=== PATIENT | female | born 1985 | race Caucasian/White ===

== ENCOUNTER 2022-07-26 19:28 | Emergency (ER) | payer BC ==
[2022-07-26] MEDS ORDERED: Acetaminophen/HYDROcodone 325-5 MG Tab PO ONE (21:07)
== END 2022-07-26 21:18 | disposition home or self-care (01) ==
LOC: MW.ED 19:28
DX: S09.90XA Unspecified injury of head, initial encounter (principal); S09.92XA Unspecified injury of nose, initial encounter; Z91.041 Radiographic dye allergy status; W55.12XA Struck by horse, initial encounter
CPT/HCPCS: 70450; 70486; 72125; 99283; A9270